=== PATIENT | male | born 1985 | race Caucasian/White ===

== ENCOUNTER 2023-12-19 18:41 | Emergency (ER) | payer SELFPAY ==
[2023-12-19 18:51] VITALS: BP 122/87; PULSE 70; RESP 17; TEMP 36.3; O2SAT 96; BMI 24.4
== END 2023-12-19 19:58 | disposition left against medical advice (07) ==
PROVIDERS: Emergency Provider Family Medicine
DX: Z53.21 Procedure and treatment not carried out due to patient leaving prior to being seen by health care provider (principal)

== ENCOUNTER 2024-03-22 23:44 | Emergency (ER) | payer SELFPAY ==
[2024-03-23 00:11] VITALS: BP 144/79; PULSE 48; RESP 14; TEMP 36.5; O2SAT 97
--- NOTE | 2024-03-23 02:13 | W.ED.DENTAL ---
HPI - Dental/Oral General: Chief complaint: Dental/Oral Stated complaint: Tooth pain Time Seen by Provider: 03/23/24 02:10 History of Present Illness: Patient has a bad tooth in his left lower premolar region that is necrotic and has been causing him pain for the last couple days he is worried about infection. Patient does not have a dentist. Pain is also running down into his neck. Patient denies any fever or chills. Review of Systems General: Reports: 10 or more systems reviewed and unremarkable except in HPI and below Physical Exam Const: COMMON NORMALS: no acute distress, average body habitus, patient oriented x3, no limitations, healthy appearing, alert and well nourished HENMT: COMMON NORMALS: normocephalic, atraumatic, hearing grossly normal bilaterally, external ears normal, Normal nasal mucous membranes and turbinates present, moist oral mucous membranes and oropharynx normal; dentition not normal (Multiple necrotic teeth) HEAD & SCALP: normocephalic and atraumatic NOSE: Normal nasal mucous membranes and turbinates present EXTERNAL EAR: Yes external ears normal Neck/C-Spine: COMMON NORMALS: full ROM, no lymphadenopathy, supple (Tender to palpate left anterior), no meningeal signs, no JVD and Thyroid normal THYROID: Thyroid normal Chest: COMMONS NORMALS: normal inspection of the chest and normal palpation of entire chest wall Resp: COMMON NORMALS: normal respiratory effort, No retractions, No use of accessory muscles and clear to auscultation bilaterally AUSCULTATION: clear to auscultation bilaterally Cardio: COMMON NORMALS: no JVD Neuro: COMMON NORMALS: patient oriented x3 SENSORIUM/ORIENTATION: Yes alert MENINGEAL SIGNS: Yes no meningeal signs Course Vital Signs: Vital signs: Vital Signs Temperature 97.7 F 03/23/24 00:11 Pulse Rate 48 L 03/23/24 00:11 Respiratory Rate 14 03/23/24 00:11 Blood Pressure 144/79 03/23/24 00:11 Pulse Oximetry 97 03/23/24 00:11 [facility] - Dental/Oral Medical Decision Making Patient is due Amoxil 500 mg here to start his antibiotic course. Prescription was sent into his pharmacy. Patient should follow-up with a dentist in the next 7 to 10 days for further evaluation and treatment. Differential Diagnosis Likely dental caries Medical Records I reviewed the patient's medical records. Lab Data I reviewed the patient's lab results. No radiology studies performed this visit Discharge Plan Discharge Patient Disposition: Home Clinical Impression: Dental caries, Toothache Condition: Stable Prescriptions: New amoxicillin 500 mg capsule 500 mg PO Q8H Qty: 30 0RF Discharge Orders: Discharge ED (Routine); Ordered 03/23/24 Ordered By: David Sutherland Patient Instructions: Toothache (ED) Activity Restrictions/Additional Instructions: Please take your medicine as directed. Please find and follow-up with a dentist for definitive treatment. Coding Level of Care Code ED Supercalender Operator for Ashish Wong
[2024-03-23] MEDS: amoxicillin 500 mg Capsule PO (02:22)
== END 2024-03-23 02:45 | disposition home or self-care (01) ==
PROVIDERS: Emergency Provider Emergency Medicine
DX: K02.9 Dental caries, unspecified (principal); K08.89 Other specified disorders of teeth and supporting structures
CPT/HCPCS: 99283